=== PATIENT | female | born 1975 | race Two or more races ===

== ENCOUNTER → 2020-06-22 15:00 | Outpatient (CLI) | payer OTHER | END | disposition home or self-care (01) | LOC: PPH VACUNA 15:00 | DX: Z23 Encounter for immunization (principal) ==

== ENCOUNTER → 2020-07-13 08:00 | Outpatient (CLI) | payer OTHER | END | disposition home or self-care (01) | LOC: PPH VACUNA 08:00 | DX: Z23 Encounter for immunization (principal) ==

== ENCOUNTER 2022-12-05 15:18 | Outpatient (CLI) | payer OTHER ==
[2022-12-05 16:03] LABS: CREATININE SERUM 0.92 mg/dL (0.55-1.02)
== END 2022-12-05 15:21 | disposition home or self-care (01) ==
LOC: LAB 15:18
PROVIDERS: ATTEND Family Medicine
DX: Z01.812 Encounter for preprocedural laboratory examination (principal)

== ENCOUNTER 2022-12-09 07:33 | Outpatient (CLI) | payer OTHER | END 2022-12-09 07:48 | disposition home or self-care (01) | LOC: TOM 07:33 | PROVIDERS: ATTEND Family Medicine | DX: R10.9 Unspecified abdominal pain (principal) ==

== ENCOUNTER → 2023-03-13 | Outpatient (CLI) | payer OTHER | END | disposition home or self-care (01) | LOC: TOM 07:43 | PROVIDERS: ATTEND Family Medicine | DX: K92.2 Gastrointestinal hemorrhage, unspecified (principal) ==